=== PATIENT | male | born 2000 | race Caucasian/White ===

== ENCOUNTER 2024-12-15 08:40 | Day surgery (SDC) | payer OTHER ==
[2024-12-12 11:35] VITALS: BMI 21.5
[2024-12-15] MEDS ORDERED: CEFAZOLIN 2 GM VIAL ONE (08:55)
[2024-12-15] MEDS ORDERED: PROPOFOL 0 ML ONE (09:27)
[2024-12-15] MEDS ORDERED: Lidocaine 1% PF 5 ML VIAL ONE (09:27)
[2024-12-15] MEDS ORDERED: fentaNYL PF 100 MCG/2 ML SYRINGE ONE ×2 (09:28→11:22)
[2024-12-15] MEDS ORDERED: Ropivacaine 0.2% HCl/PF 20 ML ONE (09:58)
[2024-12-15] MEDS ORDERED: Ropivacaine 0.5% HCl/PF (150 MG/30 ML VIAL) ONE (09:58)
[2024-12-15] MEDS ORDERED: PROPOFOL 20 ML ONE (10:30)
[2024-12-15] MEDS ORDERED: Bupivacaine 0.25% HCL 30 ML VIAL ONE (10:50)
[2024-12-15] MEDS ORDERED: Bacitracin Zinc Ointment 30 gm TUBE ONE (11:42)
[2024-12-15] MEDS ORDERED: Ondansetron PF 4 MG/2 ML Vial ONE (12:37)
[2024-12-15] MEDS ORDERED: HYDROmorphone 0.5 MG/0.5 ML SYRINGE ONE (13:44)
[2024-12-15] MEDS ORDERED: HYDROcodone/Acetaminophen 5/325 mg Tablet ONE (14:27)
== END 2024-12-15 14:52 | disposition home or self-care (01) ==
LOC: SDC 08:40
PROVIDERS: ATTEND Orthopaedic Surgery
PROC: 0PSH04Z Reposition Right Radius with Internal Fixation Device, Open Approach (ICD-10-PCS; principal; 2024-12-15)
PROC: 0PSQ04Z Reposition Left Metacarpal with Internal Fixation Device, Open Approach (ICD-10-PCS; principal; 2024-12-15)
DX: S52.371A Galeazzi's fracture of right radius, initial encounter for closed fracture (principal); S63.055A Dislocation of other carpometacarpal joint of left hand, initial encounter; S62.317A Displaced fracture of base of fifth metacarpal bone, left hand, initial encounter for closed fracture; V89.2XXA Person injured in unspecified motor-vehicle accident, traffic, initial encounter; Z88.8 Allergy status to other drugs, medicaments and biological substances
CPT/HCPCS: C1713; C1894; J0665; J1100; J1171; J2250; J2405; J2704; J2795; J3010